=== PATIENT | female | born 1950 | race Two or more races ===

== ENCOUNTER 2024-08-21 13:45 | Emergency (ER) | payer MEDICARE, MEDICAID, SELFPAY ==
[2024-08-21 14:03] VITALS: BP 148/65; PULSE 88; RESP 20; TEMP 36.6; O2SAT 96
--- NOTE | 2024-08-21 14:16 | XR_ITS ---
Examination: Thoracic spine 3 views Technique one AP lateral coned lateral upper dorsal spine 3 views Exam date and time: August 21, 2024 1456 hrs. Indications: Patient fell 3 days ago with injury to the upper back, upper back pain. Findings: Prominent osteopenia Adequate alignment thoracic vertebral bodies on the lateral view No acute fracture Mild to moderate diffuse thoracic disc narrowing Impression: No acute thoracic fracture
--- NOTE | 2024-08-21 14:16 | XR_ITS ---
Examination: Cervical spine 3 views Technique: AP lateral coned AP odontoid cervical spine 3 views Exam date and time: August 21, 2024 1412 hrs. Comparison 01/31/2010 Indication: Patient fell 3 days ago with injury to the neck, neck pain Findings: Adequate alignment cervical vertebral bodies No cervical fracture Intact odontoid Impression: No acute cervical fracture
--- NOTE | 2024-08-21 14:16 | XR_ITS ---
Examination: Lumbar spine 3 views Technique one AP lateral coned lateral lower lumbar spine 3 views Exam date and time: August 21, 2024 1506 hrs. Indications: Patient fell 3 days ago with injury to lower back, lower back pain. Findings: Small bowel ileus No acute lumbar fracture Moderate disc narrowing L2-L3, L5-S1 Impression: No acute lumbar fracture
--- NOTE | 2024-08-21 14:25 | EDNOTE_ITS ---
<Statement entered by Cassidy Valadez MD - 08/23/24 07:00> As co-signing physician, I was present and available for consult prn. I concur with the plan and care as documented by the midlevel provider. ED Back Injury Pain RME/HPI General Chief Complaint: Back Pain/Injury Stated Complaint: BACK/TAILBONE PAIN POST FALL X SUNDAY Time Seen by Provider: 08/21/24 13:51 Source: patient Arrival date/time: 08/21/24 13:45 The patient is a 74-year-old female with a significant past medical history of hypertension, hyperlipidemia, and diabetes who presents to the emergency department with complaints of generalized back pain. The pain began after a fall approximately 8 days ago when she fell backward off a stool while cleaning her refrigerator, landing on her back. She was evaluated by her primary care provider at that time and prescribed pain medications. Despite this, she continues to experience persistent back pain. She denies fever, chills, shortness of breath, or any other injuries. Mode of arrival: ambulatory Limitations: no limitations Related Data Home Medications ?Medication ?Instructions ?Recorded ?Confirmed amlodipine 5 mg tablet 5 mg PO QDAY 07/16/20 atorvastatin 10 mg tablet 10 mg PO QDAY 07/16/2007/16 benazepril 40 mg tablet 40 mg PO QDAY 07/16/2007/16 glimepiride 1 mg tablet 1 mg PO QDAY 07/16/20 insulin glargine 100 unit/mL (3 80 unit subcut QAM 10/0107/16/20 mL) subcutaneous pen (Basaglar KwikPen U-100 Insulin) metformin 1,000 mg tablet 1,000 mg PO BID 07/16/2010/01 Allergies Allergy/AdvReac Type Severity Reaction Status Date / Time No Known Allergies Allergy Verified 08/21/24 13:50 Review of Systems Review of Systems Systems Reviewed: All systems reviewed, normal except as documented Narrative Review of Systems: Gen: No fever, no chills, no weight loss EYES: No discharge, no visual changes, no pain HEENT: No ear pain, no congestion, no sore throat PULM: No shortness of breath, no cough, no congestion CV: No chest pain, no dyspnea on exertion, no palpitations GI: No nausea, no vomiting, no diarrhea, no pain, no constipation : No frequency, no urgency,? no dysuria Musc/skel: No joint pain, ++back pain and coccyx bone pain Skin: No rash? Psyc: No hallucinations, no depression Heme/Lymph: No easy bleeding or bruising tendencies Neuro: No weakness, no headache ED Exam General Limitations: Present no limitations General appearance: Present alert and in no apparent distress Head Head exam: Present atraumatic Eye Eye exam: Present normal appearance, PERRL and EOMI ENT ENT exam: Present normal exam, normal oropharynx and mucous membranes moist Neck Neck exam: Present normal inspection, full ROM and trachea midline Chest Chest inspection: Present normal inspection and symmetric chest wall rise Respiratory Respiratory exam: Present normal lung sounds bilaterally Cardiovascular Cardiovascular exam: Present regular rate, normal rhythm and normal heart sounds Abdominal Exam Abdominal exam: Present soft and normal bowel sounds Extremities Exam Extremities exam: Present normal inspection and full ROM Back Exam Back exam: Present normal inspection, full ROM and other (Paraspinal tenderness, coccyx tenderness. No neck pain no step-offs); Absent CVA tenderness (R) or CVA tenderness (L) Neurological Exam Neurological exam: Present alert, oriented X3 and CN II-XII intact Psychiatric Psychiatric exam: Present normal affect and normal mood Skin Skin exam: Present warm, dry, intact and normal color Course Quality Measures none Orders Category Date Time Status XR cervical spine 2-3V Stat Exams 08/21/24 14:16 Completed XR lumbar spine 2-3V Stat Exams 08/21/24 14:16 Completed XR sacrum coccyx min 2V Stat Exams 08/21/24 14:26 Completed XR thoracic spine 3V Stat Exams 08/21/24 14:16 Completed Vital Signs Vital signs: Vital Signs Temperature 98 F 08/21/24 14:03 Pulse Rate 88 08/21/24 14:03 Respiratory Rate 20 08/21/24 14:03 Blood Pressure 148/65 H 08/21/24 14:03 Pulse Oximetry (%) 96 08/21/24 14:03 Oxygen Delivery Method Room Air 08/21/24 14:03 Back Pain / Injury MDM Narrative MDM Narrative:: Lumbar spine and pelvic X-rays were obtained. Imaging demonstrates an acute- appearing fracture involving the sacral segment. No associated dislocations or gross instability identified on plain films. Given the patient?s persistent pain, mechanism of injury, and imaging findings, the diagnosis of an acute sacral fracture is confirmed. No neurological deficits noted on exam. Patient is stable for discharge with strict spinal precautions, pain management, and outpatient orthopedic follow-up. Advised to minimize weight-bearing activities as tolerated and to return to the ED for any worsening symptoms, new weakness, numbness, or bowel/bladder dysfunction. Patient data External records reviewed:: [facility] previous records Clinical information provided by:: patient Social determinants that could affect healthcare access:: none Patient has the following chronic illnesses:: no How is presenting disease/condition affected by chronic disease/condition?: no chronic disease Evaluation data The following diagnostics were reviewed and interpreted by me:: radiology exam(s) Lab and/or radiology exams considered but not ordered:: no Interpretation Summary: Examination: Lumbar spine 3 views Technique one AP lateral coned lateral lower lumbar spine 3 views Exam date and time: August 21, 2024 1506 hrs. Indications: Patient fell 3 days ago with injury to lower back, lower back pain. Findings: Small bowel ileus No acute lumbar fracture Moderate disc narrowing L2-L3, L5-S1 Impression: No acute lumbar fracture Examination: Sacrococcyx 3 views Technique: AP, inclined AP lateral sigmoid are 6 3 views Indications: Patient fell 3 days ago with injury to the sacral region, sacral pain. Findings:: Acute appearing nondisplaced fracture fifth sacral segment Prominent osteopenia Impression: Acute appearing nondisplaced fracture fifth sacral segment Examination: Thoracic spine 3 views Technique one AP lateral coned lateral upper dorsal spine 3 views Exam date and time: August 21, 2024 1456 hrs. Indications: Patient fell 3 days ago with injury to the upper back, upper back pain. Findings: Prominent osteopenia Adequate alignment thoracic vertebral bodies on the lateral view No acute fracture Mild to moderate diffuse thoracic disc narrowing Impression: No acute thoracic fracture Examination: Cervical spine 3 views Technique: AP lateral coned AP odontoid cervical spine 3 views Exam date and time: August 21, 2024 1412 hrs. Comparison 01/31/2010 Indication: Patient fell 3 days ago with injury to the neck, neck pain Findings: Adequate alignment cervical vertebral bodies No cervical fracture Intact odontoid Impression: No acute cervical fracture Medications / Prescriptions Medications or Prescriptions considered but not ordered:: no Medication administrations:: no Consultations Consultation(s) initiated? (list below): No Diagnosis Differential diagnosis back pain/injury: lumbar radiculopathy, sciatica, strain of lumbar region and thoracic back pain Most likely diagnosis given after review of the tests above:: Back contusion status post fall Admission Indicated Admission indicated?: not indicated Admission Request Was there a request for admission?: No Disposition Plan Disposition Plan: Discharge Discharge Attestation Discharge Attestation: The patient and all family members were given an opportunity to ask questions and understood the discharge instructions. Discharge instructions specifically effects, indications for sooner follow up or return to the emergency department, and the expected course of current diagnosis. Patient condition: Stable Discharge Plan Plan Patient Disposition: HOME (Self Care) Patient condition on transfer: Stable Prescriptions/Referrals Prescriptions/Med Rec: No Action atorvastatin 10 mg Tablet 10 mg PO QDAY amlodipine 5 mg Tablet 5 mg PO QDAY glimepiride 1 mg Tablet 1 mg PO QDAY metformin 1,000 mg Tablet 1,000 mg PO BID benazepril 40 mg Tablet 40 mg PO QDAY Basaglar KwikPen U-100 Insulin 100 unit/mL (3 mL) Insulin Pen 80 unit SUBCUT QAM Referrals: Fauzia Rouse NP [Primary Care Provider] - In 1 week Problem List Clinical Impression: Fall, Fractured coccyx Patient/Caregiver Discharge Instructions Discharge Activity: activity as tolerated Education Materials: ED Tailbone (Coccyx) Fracture Additional Instructions: * Activity: Minimize weight-bearing activities as much as possible. Avoid standing or walking for long periods. Rest when needed. * Movement: Use care when sitting, standing, or lying down. Move slowly to avoid worsening pain. * Pain Control: Take prescribed pain medications or [id number] pain relievers (such as acetaminophen or ibuprofen) as directed. * Ice: Apply ice packs to the lower back area for 20 minutes at a time, several times a day, to reduce swelling and pain (use a cloth between the ice pack and skin). * Assistive Devices: Use a walker or cane if recommended to reduce pressure on the pelvis while moving around. * Avoid: Heavy lifting, strenuous activities, or twisting movements until cleared by your doctor. Follow-Up: * Follow up with orthopedic surgery or your primary care provider within 1 week for further evaluation and management. Return to the Emergency Department If: * You develop new or worsening back pain, numbness, tingling, weakness in your legs, or difficulty controlling your bladder or bowels. * You have fever, chills, or worsening swelling/redness in the area. Print Language: Andorran Stand Alone Forms: [facility] Award Info., Patient Portal Info Letter PA/STORAGE WORKER Supervising Physician PA/STORAGE WORKER Supervising Physician: Dr. Condon
== END 2024-08-21 18:00 | disposition home or self-care (01) ==
PROVIDERS: Emergency Provider Emergency Medicine; PCP Nurse Practitioner Family
DX: S32.2XXA Fracture of coccyx, initial encounter for closed fracture (principal); M54.2 Cervicalgia; M54.6 Pain in thoracic spine; I10 Essential (primary) hypertension; E78.5 Hyperlipidemia, unspecified; Y93.E9 Activity, other interior property and clothing maintenance; W08.XXXA Fall from other furniture, initial encounter
CPT/HCPCS: 72040; 72072; 72100; 72220; 99283

== ENCOUNTER 2024-08-31 09:38 | Emergency (ER) | payer OTHER, MEDICAID, SELFPAY ==
[2024-08-31] VITALS (9 sets, daily range): BP systolic 105–178; BP diastolic 50–131; PULSE 75–107; RESP 18–22; TEMP 37.3–39.3; O2SAT 95–97; BMI 30.3
--- NOTE | 2024-08-31 09:50 | XR_ITS ---
Examination: PA lateral chest 2 views Technique: Upright PA lateral chest 2 views Exam date and time: August 31, 2024, 10:30 AM Comparison 02/11/2024 Indications: Fever chills weakness today Findings: Mild prominence left ventricle Moderate vascular congestion Early pneumonia at the lung bases Impression: Early pneumonia at the lung bases
--- NOTE | 2024-08-31 09:50 | PD.EDRME ---
Rapid Medical Screening Exam RME Arrival date/time: 08/31/24 09:38 74-year-old female presents to the Emergency Department today for complaint of generalized weakness patient is febrile sepsis protocol initiated Chief Complaint: Fall Vital signs: Vital Signs Temperature 102.7 F H 08/31/24 09:47 Pulse Rate 75 08/31/24 09:47 Respiratory Rate 19 08/31/24 09:47 Blood Pressure 113/60 08/31/24 09:47 Pulse Oximetry (%) 95 08/31/24 09:47 Oxygen Delivery Method Room Air 08/31/24 09:47
[2024-08-31] MEDS: ACETAMINOPHEN 500 MG TABLET 1000 MG PO (10:05)
[2024-08-31 10:19] LABS: Collection Type, Urine Clean Catch
[2024-08-31 10:20] LABS: Lactate (Lactic Acid) 1.7 mMol/L (0.4-2.0)
[2024-08-31 10:25] LABS: Basophils # (Auto) 0.1 Thou/mm3 (0.0-0.2); Basophils % (Auto) 1 % (0-2.5); Eosinophils % (Auto) 0 % (0-10); Hematocrit 37.8 % (36.0-46.0); Hemoglobin 12.8 g/dL (12.0-16.0); Immature Granulocytes % (Auto) 1 % (0-0); Immature Granulocytes Auto 0.05 Thou/mm3 (0.00-0.00); Lymphocytes % (Auto) 34 % (10-50); Mean Corpuscular HGB Conc 33.9 g/dl (31.0-37.0); Mean Corpuscular Volume 89 fL (80-100); Monocytes # (Auto) 0.3 Thou/mm3 (0.0-0.8); Monocytes % (Auto) 3 % (0-12); Neutrophils # (Auto) 5.5 Thou/mm3 (1.8-7.7); Neutrophils % (Auto) 62 % (37-80); Nucleated Red Blood Cell % 0 /100 WBC (0); Platelet Count 189 Thou/mm3 (140-440); RDW Standard Deviation 42.6 fL (36.4-46.3); Red Blood Count 4.27 Miln/mm3 (4.00-5.20); White Blood Count 8.9 Thou/mm3 (3.6-11.0)
[2024-08-31 10:45] LABS: Bilirubin,Urine Negative (Negative); Blood,Urine Negative (Negative); Clarity,Urine Clear (Clear/Hazy); Color,Urine Yellow (Lt Yel-Yel); Glucose, Urine 1+ (Negative); Ketones,Urine 1+ (Negative); Leukocyte Esterase,Urine Negative (Negative); Nitrite,Urine Negative (Negative); PH,Urine 6.5 (5.0-7.0); Protein,Urine Trace (Neg - Trace); RBC,Urine 1 /hpf (0-3); Specific Gravity,Urine 1.024 (1.001-1.035); Squamous Epithelial Cell,Urine 4 /hpf (0-5); WBC,Urine 2 /hpf (0-5)
[2024-08-31 10:54] LABS: Alanine Aminotransferase 32 U/L (10-49); Albumin, Serum 3.8 gm/dL (3.4-4.8); Albumin/Globulin Ratio 1.2 (1.2-2.2); Alkaline Phosphatase 82 U/L (46-116); Anion Gap 8 (7-16); Aspartate Amino Transferase 48 U/L (0-34); BUN/Creatinine Ratio 14 Ratio (12-20); Bilirubin,Total 0.8 mg/dL (0.3-1.2); Blood Urea Nitrogen 14 mg/dL (9-23); Calcium 8.5 mg/dL (8.3-10.6); Calcium (Corrected) 8.7 mg/dL (8.5-10.1); Chloride 98 mMol/L (98-107); Globulin 3.1 gm/dL (2.3-3.5); Glucose 227 mg/dL (74-106); Osmolality,Calculated 266 (275-295); Potassium 4.3 mMol/L (3.4-5.1); Procalcitonin 0.36 ng/ml (0.0-0.49); Sodium 129 mMol/L (136-145); Total Protein 6.9 gm/dL (5.7-8.2); eGFR 60 See Note
--- NOTE | 2024-08-31 15:14 | PD.EDADULT ---
ED General RME/HPI General Chief complaint: Fall Stated complaint: SEVERE WEAKNESS/FALL @8AM, HIT BACK OF HEAD Arrival date/time: 08/31/24 09:38 Limitations: no limitations RME / HPI RME / HPI narrative: 08/31/24 09:38 74-year-old female presents to the Emergency Department today for complaint of generalized weakness patient is febrile sepsis protocol initiated DR. GREEN MAIN ED EVALUATION: 74 year old female presents to the Emergency Department with complaints of subjective fevers and chills onset a week; patient thinks this is due to a fall she had 2 weeks ago where she fell. Patient fell backward off a stool while cleaning her refrigerator, landing on her back and was evaluated here on 08/21/24. She has back of her head pain but no neck pain. No cough. No dysuria. Denies any other symptoms at this time. PMHx: Diabetes mellitus, hypercholesterolemia, and hypertension. Social Hx: No tobacco, alcohol, or substance use. Related Data Home Medications ?Medication ?Instructions ?Recorded ?Confirmed amlodipine 5 mg tablet 5 mg PO QDAY 07/16/20 07/16/20 atorvastatin 10 mg tablet 10 mg PO QDAY 07/16/20 07/16/20 benazepril 40 mg tablet 40 mg PO QDAY 07/16/20 07/16/20 glimepiride 1 mg tablet 1 mg PO QDAY 07/16/20 07/16/20 insulin glargine 100 unit/mL (3 80 unit subcut QAM 07/16/20 07/16/20 mL) subcutaneous pen (Basaglar KwikPen U-100 Insulin) metformin 1,000 mg tablet 1,000 mg PO BID 07/16/20 07/16/20 Previous Rx's ?Medication ?Instructions ?Recorded levofloxacin 500 mg tablet 500 mg PO Q24H 10 days #10 tabs 08/31/24 Allergies Allergy/AdvReac Type Severity Reaction Status Date / Time No Known Allergies Allergy Verified 08/31/24 09:44 Review of Systems Review of Systems Systems Reviewed: All systems reviewed, normal except as documented Narrative Review of Systems: GEN: + subjective fever, + chills, no weight loss EYES: No discharge, no visual changes, no pain HEENT: + back of her head pain; no ear pain, no congestion, no sore throat PULM: No shortness of breath, no cough, no congestion CV: No chest pain, no dyspnea on exertion, no palpitations GI: No nausea, no vomiting, no diarrhea, no pain, no constipation : No frequency, no urgency and no dysuria MUSC/SKEL: No joint pain, no back pain SKIN: No rash PSYCH: No hallucinations, no depression HEME/LYMPH: No easy bleeding or bruising tendencies NEURO: No weakness, no headache Past Medical History Past Medical History NEUROLOGIC: Positive Cerebrovascular Accident CARDIAC: Positive Cardiac Disorders, Hypercholesterolemia and Hypertension MUSCULOSKELETAL: Positive Arthritis ENDOCRINE: Positive Diabetes Mellitus Type 2 OTHER HISTORY: Positive Falls, Blood Transfusions, Chicken Pox, Measles and Mumps Surgical History SURGICAL: Positive Joint Replacement and Section Social History SMOKING STATUS: Never smoker SUBSTANCE USE: does not use ALCOHOL: Never ED Exam General Limitations: Present no limitations General appearance: Present alert, in no apparent distress and other (well developed) Head Head exam: Present atraumatic, normocephalic and normal inspection Eye Eye exam: Present normal appearance, PERRL and EOMI ENT ENT exam: Present normal exam, normal oropharynx and mucous membranes moist Neck Neck exam: Present normal inspection, full ROM and trachea midline Chest Chest inspection: Present normal inspection and symmetric chest wall rise Respiratory Respiratory exam: Present normal lung sounds bilaterally and other (slight crackles but air exchange is normal) Cardiovascular Cardiovascular exam: Present regular rate, normal rhythm and normal heart sounds Abdominal Exam Abdominal exam: Present soft and normal bowel sounds Extremities Exam Extremities exam: Present normal inspection and full ROM Back Exam Back exam: Present normal inspection and full ROM Neurological Exam Neurological exam: Present alert, oriented X3 and CN II-XII intact Psychiatric Psychiatric exam: Present normal affect and normal mood Skin Skin exam: Present warm, dry, intact and normal color Course Course Course Narrative: 0945: Sepsis alert initiated. Orders made at this time are congruent with ED Adult Sepsis Order List. Re-evaluation is to be completed. 1635: Fluids started. 1705: Sepsis reassessment performed consisting of lab review, vitals, physical exam including auscultation of heart, lungs, and visual evaluation of capillary refills, mucosal membranes and extremities. Patient is not septic even though she met SIRS criteria; she has a fever from an early pneumonia but is not actually septic. Patient is stable. Patient has the desire to be discharged and follow as an outpatient for her pneumonia. Quality Measures none Orders Category Date Time Status Bedside COVID-19 Antigen Test NOW Care 08/31/24 09:50 Active Bedside Influenza A&B Antigen Test NOW Care 08/31/24 09:[address] head/brain wo con Stat Exams 08/31/24 15:48 Completed XR chest 2V Stat Exams 08/31/24 09:50 Completed Blood Culture (Lab) Stat Lab 08/31/24 10:05 Received CBC Stat Lab 08/31/24 10:05 Completed Comprehensive Metabolic Panel Stat Lab 08/31/24 10:05 Completed Lactate (Lactic Acid) Stat Lab 08/31/24 10:05 Completed Procalcitonin Stat Lab 08/31/24 10:05 Completed Urinalysis Stat Lab 08/31/24 10:08 Completed Urine Culture Stat Lab 08/31/24 10:08 Received Acetaminophen Tab [Tylenol ES Tab] Med 08/31/24 09:50 Discontinued 1,000 mg PO X1 ONE Levofloxacin [Levaquin] Med 08/31/24 15:54 Discontinued 500 mg PO X1 ONE Sodium Chloride 0.9% 500 ml [Ns] 500 ml Med 08/31/24 15:48 Discontinued IV 999 mls/hr Reevaluation(s) Reevaluation #1: I offered the patient admission but the patient states she has to care for her at home, cannot walk, so patient opted for treatment as an outpatient. We reviewed all the results, analysis, and treatment plans. She denied admission and would like to be discharged on antibiotics. Patient is amenable to discharge. Strict return precautions were outlined. Patient was discharged in stable condition. Time: 17:20 Vital Signs Vital signs: Vital Signs Temperature 102.7 F H 08/31/24 09:47 Pulse Rate 75 08/31/24 09:47 Respiratory Rate 19 08/31/24 09:47 Blood Pressure 113/60 08/31/24 09:47 Pulse Oximetry (%) 95 08/31/24 09:47 Oxygen Delivery Method Room Air 08/31/24 09:47 Critical Care Time Critical Care Time Critical Care Time: Yes Total Critical Care Time (min.): 30 Attestation: The high probability of sudden, clinically significant deterioration in the patient?s condition required the highest level of my preparedness to intervene urgently. The services I provided to this patient were to treat and/or prevent clinically significant deterioration. Services included the following: chart data review, reviewing nursing notes and/or old charts, documentation time, network pricing consultant collaboration regarding findings and treatment options, medication orders and management, direct patient care, vital sign assessments and ordering, interpreting and reviewing diagnostic studies and lab tests. Aggregate critical care time includes only time during which I was engaged in work directly related to the patient?s care, as described above, whether at bedside or elsewhere in the Emergency Department. It did not include time spent performing other reported procedures or the services of residents, students, nurses or physician assistants. Discharge Plan Plan Patient Disposition: HOME (Self Care) Patient condition on transfer: Stable Prescriptions/Referrals Prescriptions/Med Rec: New levofloxacin 500 mg tablet 500 mg PO Q24H 10 Days Qty: 10 0RF No Action atorvastatin 10 mg Tablet 10 mg PO QDAY amlodipine 5 mg Tablet 5 mg PO QDAY glimepiride 1 mg Tablet 1 mg PO QDAY metformin 1,000 mg Tablet 1,000 mg PO BID benazepril 40 mg Tablet 40 mg PO QDAY Basaglar KwikPen U-100 Insulin 100 unit/mL (3 mL) Insulin Pen 80 unit SUBCUT QAM Referrals: Virgen Martinez PA-C [Primary Care Provider] - In 1 week Problem List Clinical Impression: Pneumonia, Hyponatremia, Fever Patient/Caregiver Discharge Instructions Education Materials: ED Hyponatremia, ED Pneumonia (Adult) Additional Instructions: Take Tylenol 500 mg 1-2 tabs every 6 hours as needed for pain PLUS Advil 200 mg gel tablets as needed for fever. Please follow-up with your primary care physician within a week. Return to the Emergency Department as needed. Print Language: Austrian MDM Patient Acuity Low Acuity (complete MDM as needed) Narrative: I, Enriqueta Mcarthur, am scribing for and in the presence of Dr. Green. Clinical Information Provided by: patient Medical Records reviewed [facility] Medical Records additional comments: Reviewed last ED visit dated 08/21/24, discharged with the following: Fall Labs Labs: Interpreted by la Lab(s) Interpretation(s): sodium 129, hyponatremia Imaging Imaging Interpretation(s): Procedure(s): XR chest 2V Accession Number(s): [id number] cc: Janes (ROSE MARY),Jeremie BAZZI; Kieran Veloz MD; Virgen Martinez PA-C~ Examination: PA lateral chest 2 views Technique: Upright PA lateral chest 2 views Exam date and time: August 31, 2024, 10:30 AM Comparison 02/11/2024 Indications: Fever chills weakness today Findings: Mild prominence left ventricle Moderate vascular congestion Early pneumonia at the lung bases Impression: Early pneumonia at the lung bases Dictated By: Kieran Veloz MD Procedure(s): CT head/brain wo con Accession Number(s): [id number] cc: Pj Green MD; Kieran Veloz MD; Virgen Martinez PA-C~ Examination: CT brain head without contrast. 2-D sagittal coronal reconstructions Date and time of exam:August 31, 2024 1618 hrs. Indications: Patient fell 10 days ago with injury to the head, head pain CTDI: vol (mGy):45 DLP: (mGycm):906 t Technique: Multiple CT axial sections of the brain have been obtained, 5 mm slice thickness. Contrast has not been administered. 2-D sagittal, coronal reconstructions have been obtained Low dose protocols were performed. One or more of the following dose reduction techniques were used; automated exposure control, adjustment of the mA and/or KV according to patient size, use of iterative reconstruction technique. Findings: No significant ventricular enlargement. Intra-axial or extra-axial hemorrhage density is not seen. No mass effect or midline shift Basal cisterns are not remarkable. Fourth ventricle is midline. Cranial vault intact. Impression: Negative for acute hemorrhage, mass effect or midline shift Dictated By: Kieran Veloz MD Medication Administration(s) Medication Administration History Discontinued Medications Acetaminophen (Acetaminophen 500 Mg Tablet) 1,000 mg PO X1 ONE Stop: 08/31/24 09:51 Last Admin: 08/31/24 10:05 Dose: 1,000 mg Documented By: MICHAEL Sodium Chloride (Ns) 500 mls @ 999 mls/hr IV .Q31M ONE Stop: 08/31/24 16:18 Last Admin: 08/31/24 16:35 Dose: 999 mls/hr Documented By: KIMMIE Levofloxacin (Levofloxacin 250 Mg Tablet) 500 mg PO X1 ONE Stop: 08/31/24 15:55 Last Admin: 08/31/24 16:37 Dose: 500 mg Documented By: KIMMIE Diagnosis Differential Diagnosis ED Complaint MDM: UTI, pneumonia, sepsis
--- NOTE | 2024-08-31 15:48 | XR_ITS ---
Examination: CT brain head without contrast. 2-D sagittal coronal reconstructions Date and time of exam:August 31, 2024 1618 hrs. Indications: Patient fell 10 days ago with injury to the head, head pain CTDI: vol (mGy):45 DLP: (mGycm):906 t Technique: Multiple CT axial sections of the brain have been obtained, 5 mm slice thickness. Contrast has not been administered. 2-D sagittal, coronal reconstructions have been obtained Low dose protocols were performed. One or more of the following dose reduction techniques were used; automated exposure control, adjustment of the mA and/or KV according to patient size, use of iterative reconstruction technique. Findings: No significant ventricular enlargement. Intra-axial or extra-axial hemorrhage density is not seen. No mass effect or midline shift Basal cisterns are not remarkable. Fourth ventricle is midline. Cranial vault intact. Impression: Negative for acute hemorrhage, mass effect or midline shift
[2024-08-31] MEDS: SODIUM CHLORIDE 0.9% 500 ML 500 ML 999 ML IV (16:35)
[2024-08-31] MEDS: LEVOFLOXACIN 250 MG TABLET 500 MG PO (16:37)
--- NOTE | 2024-08-31 17:15 | PC.NURSE ---
FLUIDS WERE STOPPED SINCE PT ARM WAS BENT. ASSESSED IV SITE. NO REDNESS OR SWELLING. REPOSITIONED PATIENTS ARM. FLUIDS ARE RUNNING
--- NOTE | 2024-08-31 18:16 | PC.NURSE ---
PT AMBULATED TO RESTROOM. MINIMAL ASSIST
[2024-08-31] MEDS: KETOROLAC INJ 30 MG/ML VIAL 15 MG IVP (18:44)
[2024-08-31] MEDS: ACETAMINOPHEN IVPB 1,000 MG/100 ML VIAL 250 MG IV (18:46)
== END 2024-08-31 21:03 | disposition home or self-care (01) ==
PROVIDERS: Nurse Practitioner Primary Care; Emergency Provider Family Medicine; PCP Physician Assistant
DX: N39.0 Urinary tract infection, site not specified (principal); J18.9 Pneumonia, unspecified organism; R51.9 Headache, unspecified
CPT/HCPCS: 36415; 70450; 71046; 80053; 81001; 83605; 84145; 85025; 87040; 87086; 87400; 87811; 96361; 96365; 96375; 99284; J0131; J1885; J7040; A9270

== ENCOUNTER → 2024-09-29 | Outpatient (CLI) | payer MEDICARE, MEDICAID, SELFPAY ==
--- NOTE | 2024-09-29 10:49 | XR_ITS ---
Examination: Lumbar spine, 5 views Technique: Lumbar spine AP, lateral, coned lateral lower lumbar spine, bilateral obliques 5 views Exam date and time: September 29, 2024 1212 hours INDICATIONS: Patient fell 3 months ago with injury to the lower back, lower back pain. FINDINGS: Prominent osteopenia. No acute lumbar fracture Diffuse [id number] lumbar degenerative disc disease most prominent at L5-S1 IMPRESSION: No lumbar fracture Diffuse [id number] lumbar degenerative disc disease, most prominent at L5-S1
== END | disposition home or self-care (01) ==
PROVIDERS: PCP Physician Assistant
DX: M51.370 Other intervertebral disc degeneration, lumbosacral region with discogenic back pain only (principal); M51.360 Other intervertebral disc degeneration, lumbar region with discogenic back pain only
CPT/HCPCS: 72110

== ENCOUNTER → 2024-10-13 | Outpatient (CLI) | payer MEDICARE, MEDICAID, SELFPAY ==
--- NOTE | 2024-10-13 09:40 | XR_ITS ---
Examination: Carotid arterial duplex scan, ultrasound. Date and time of exam: October 13, 2024 at 0957 hours INDICATIONS: Episodes left neck pain and slurred speech beginning 2 days ago Technique: Multiple sonographic images have been obtained of the carotid arteries and vertebral arteries, B-mode/grayscale imaging and Doppler spectral analysis and color flow Peak systolic and diastolic velocities have been recorded. Systolic diastolic ratios have been calculated. Findings: Right peak systolic velocities: Distal internal carotid artery peak systolic velocity is 0.6 M/sec Proximal internal carotid artery peak systolic velocity is 0.9 M/sec Carotid bifurcation peak systolic velocity is 0.8 M/sec External carotid artery peak systolic velocity is 0.6 M/sec Vertebral artery flow is antegrade. Left peak systolic velocities: Distal internal carotid artery peak systolic velocity is 1.1 M/sec Proximal internal carotid artery peak systolic velocity is 0.5 M/sec Carotid bifurcation peak systolic velocity is 0.7 M/sec External carotid artery peak systolic velocity is 0.7 M/sec Vertebral artery flow is antegrade Doppler waveform analysis demonstrates no spectral broadening Impression: Right internal carotid artery demonstrates 0-10% stenosis. Left internal carotid artery demonstrates 10-30% stenosis.
== END | disposition home or self-care (01) ==
PROVIDERS: PCP Physician Assistant; Referring Provider Physician Assistant; Visit Provider Physician Assistant
DX: R47.81 Slurred speech (principal)
CPT/HCPCS: 93880

== ENCOUNTER 2024-12-28 12:19 | Emergency (ER) | payer MEDICARE, MEDICAID, SELFPAY ==
[2024-12-28 12:42] VITALS: BP 130/72; PULSE 69; RESP 20; TEMP 36.8; O2SAT 97
--- NOTE | 2024-12-28 12:44 | EKG_ITS ---
[facility] Test Date: 2024-12-28 Pat Name: EMPERATRIZ PAGE Department: Room: - Gender: Female [employer] Polisher: : 1950 Requested By: Riky Pardo Order Number: [id number] Reading MD: Riky Pardo Measurements Intervals [place] Rate: 65 P: 28 MI: 177 QRS: -42 QRSD: 133 T: 122 QT: 431 QTc: 450 Interpretive Statements SINUS RHYTHM LEFT AXIS DEVIATION [QRS AXIS < -30] LEFT BUNDLE BRANCH BLOCK [120+ ms QRS DURATION, 80+ ms Q/S IN V1/V2, 85+ ms R IN I/aVL/V5/V6] No previous ECG available for comparison /store/S0/[id number].pdf
[2024-12-28 12:45] VITALS: BMI 23.1
--- NOTE | 2024-12-28 12:45 | PD.EDRME ---
Rapid Medical Screening Exam RME Arrival date/time: 12/28/24 12:19 74-year-old female with a history of hypertension, hyperlipidemia, type 2 diabetes presents to the emergency room with a chief complaint of dizziness, lightheadedness, generalized weakness x 1 week I have greeted and performed a focused initial assessment of this patient. A comprehensive ED assessment and evaluation of the patient, analysis of all test results, and completion of the medical decision making process will be conducted by additional ED providers. Chief Complaint: Weakness Time Seen by Provider: 12/28/24 12:40 Vital signs: Vital Signs Temperature 98.2 F 12/28/24 12:42 Pulse Rate 69 12/28/24 12:42 Respiratory Rate 20 12/28/24 12:42 Blood Pressure 130/72 12/28/24 12:42 Pulse Oximetry (%) 97 12/28/24 12:42 Oxygen Delivery Method Room Air 12/28/24 12:42 Vital signs reviewed by provider: Yes
[2024-12-28 13:25] LABS: Basophils # (Auto) 0.0 Thou/mm3 (0.0-0.2); Basophils % (Auto) 0 % (0-2.5); Eosinophils # (Auto) 0.2 Thou/mm3 (0.0-0.5); Eosinophils % (Auto) 2 % (0-10); Hematocrit 39.1 % (36.0-46.0); Hemoglobin 12.8 g/dL (12.0-16.0); Immature Granulocytes Auto 0.02 Thou/mm3 (0.00-0.00); Lymphocytes # (Auto) 2.7 Thou/mm3 (1.0-4.8); Lymphocytes % (Auto) 39 % (10-50); Mean Corpuscular HGB Conc 32.7 g/dl (31.0-37.0); Mean Corpuscular Hemoglobin 30.3 pg (25.0-35.0); Mean Corpuscular Volume 92 fL (80-100); Monocytes # (Auto) 0.4 Thou/mm3 (0.0-0.8); Monocytes % (Auto) 5 % (0-12); Neutrophils # (Auto) 3.7 Thou/mm3 (1.8-7.7); Neutrophils % (Auto) 53 % (37-80); Nucleated Red Blood Cell # 0.00 Thou/mm3 (0.00-0.00); Nucleated Red Blood Cell % 0 /100 WBC (0); Platelet Count 147 Thou/mm3 (140-440); RDW Standard Deviation 43.7 fL (36.4-46.3); Red Blood Count 4.23 Miln/mm3 (4.00-5.20); White Blood Count 7.0 Thou/mm3 (3.6-11.0)
[2024-12-28 13:35] LABS: Collection Type, Urine Clean Catch; RBC,Urine 0 /hpf (0-3)
[2024-12-28 13:37] LABS: Alanine Aminotransferase 30 U/L (10-49); Albumin, Serum 4.2 gm/dL (3.4-4.8); Albumin/Globulin Ratio 1.6 (1.2-2.2); Alkaline Phosphatase 93 U/L (46-116); Anion Gap 10 (7-16); Aspartate Amino Transferase 38 U/L (0-34); BUN/Creatinine Ratio 13 Ratio (12-20); Bilirubin,Total 0.6 mg/dL (0.3-1.2); Blood Urea Nitrogen 12 mg/dL (9-23); Calcium 9.7 mg/dL (8.3-10.6); Calcium (Corrected) 9.7 mg/dL (8.5-10.1); Carbon Dioxide 24.9 mMol/L (20.0-31.0); Chloride 102 mMol/L (98-107); Creatinine (Component) 0.9 mg/dL (0.6-1.3); Estimated Creatinine Clearance 50.8 mL/min (>60); Globulin 2.7 gm/dL (2.3-3.5); Glucose 369 mg/dL (74-106); Magnesium 1.2 mg/dL (1.6-2.6); Osmolality,Calculated 288 (275-295); Potassium 5.0 mMol/L (3.4-5.1); Sodium 137 mMol/L (136-145); Total Protein 6.9 gm/dL (5.7-8.2); Troponin I < 0.020 ng/mL (0.0-0.045); eGFR > 60 See Note
[2024-12-28 13:48] LABS: Bacteria,Urine Rare; Bilirubin,Urine Negative (Negative); Blood,Urine Negative (Negative); Clarity,Urine Hazy (Clear/Hazy); Color,Urine Colorless (Lt Yel-Yel); Glucose, Urine 4+ (Negative); Ketones,Urine Negative (Negative); Leukocyte Esterase,Urine Positive (Negative); Nitrite,Urine Negative (Negative); PH,Urine 6.0 (5.0-7.0); Protein,Urine Negative (Neg - Trace); Specific Gravity,Urine 1.014 (1.001-1.035); Squamous Epithelial Cell,Urine < 1 /hpf (0-5); Urobilinogen,Urine Negative mg/dL (0.0-1.0); WBC,Urine 8 /hpf (0-5)
[2024-12-28 14:08] LABS: B-Type Natriuretic Peptide 46 pg/mL (0-100)
[2024-12-28 18:10] VITALS: BP 135/66; PULSE 63; RESP 18; TEMP 36.9; O2SAT 98
--- NOTE | 2024-12-28 18:22 | PD.EDWEAK ---
ED Weakness RME/HPI General Chief complaint: Weakness Stated complaint: HEADACHE, WEAKNESS, DIZZINESS, HANDS NUMB X 1 WK Time Seen by Provider: 12/28/24 12:40 Arrival date/time: 12/28/24 12:19 RME / HPI RME / HPI Narrative: 12/28/24 12:19 74-year-old female with a history of hypertension, hyperlipidemia, type 2 diabetes presents to the emergency room with a chief complaint of dizziness, lightheadedness, generalized weakness x 1 week I have greeted and performed a focused initial assessment of this patient. A comprehensive ED assessment and evaluation of the patient, analysis of all test results, and completion of the medical decision making process will be conducted by additional ED providers. See MDM. Related Data Home Medications ?Medication ?Instructions ?Recorded ?Confirmed amlodipine 5 mg tablet 5 mg PO QDAY 07/16/20 07/16/20 atorvastatin 10 mg tablet 10 mg PO QDAY 07/16/20 07/16/20 benazepril 40 mg tablet 40 mg PO QDAY 07/16/20 07/16/20 glimepiride 1 mg tablet 1 mg PO QDAY 07/16/20 07/16/20 insulin glargine 100 unit/mL (3 80 unit subcut QAM 07/16/20 07/16/20 mL) subcutaneous pen (Basaglar KwikPen U-100 Insulin) metformin 1,000 mg tablet 1,000 mg PO BID 07/16/20 07/16/20 Previous Rx's ?Medication ?Instructions ?Recorded azithromycin 500 mg tablet 500 mg PO QDAY 3 days #3 tabs 12/28/24 (Zithromax TRI-BON) magnesium oxide 400 mg PO BID #60 tabs 12/28/24 meclizine 25 mg tablet 25 mg PO BID PRN dizziness #20 tabs 12/28/24 ondansetron 4 mg disintegrating 4 mg PO TID PRN nausea and 12/28/24 tablet vomiting 30 days #10 tabs prednisone 50 mg tablet 50 mg PO QDAY #3 tabs 12/28/24 scopolamine base 1 mg over 3 days 1 mg topical .q72 hours PRN 12/28/24 transdermal patch (Transderm-Scop) dizziness or vertigo #4 ea Allergies Allergy/AdvReac Type Severity Reaction Status Date / Time No Known Allergies Allergy Verified 12/28/24 12:22 Review of Systems Review of Systems Systems Reviewed: All systems reviewed, normal except as documented Past Medical History Past Medical History NEUROLOGIC: Positive Cerebrovascular Accident; Negative Neurological Disorders or Seizures CARDIAC: Positive Cardiac Disorders, Hypercholesterolemia and Hypertension; Negative Congestive Heart Failure RESPIRATORY: Negative Chronic Obstructive Pulmonary Disease (COPD) GASTROINTESTINAL: Negative Gastrointestinal Disorders GENITOURINARY: Negative Genitourinary Disorders or Renal Disease MUSCULOSKELETAL: Positive Arthritis; Negative Musculoskeletal Disorders ENDOCRINE: Positive Diabetes Mellitus Type 2; Negative Diabetes Mellitus Type 1 HEMATOLOGIC: Negative Blood Disorders OTHER HISTORY: Positive Falls, Blood Transfusions, Chicken Pox, Measles and Mumps; Negative Autoimmune Disease, Anesthesia Reactions, Organ Transplant or Cancer Family History FAMILY HISTORY: Negative Family Cardiac Disorders Surgical History SURGICAL: Positive Joint Replacement and Section; Negative Cardiac Surgery, Endocrine Surgery or Organ Transplant Social History SMOKING STATUS: Never smoker SUBSTANCE USE: does not use ED Exam Narrative Physical exam: As noted in HPI. Course Course Course Narrative: CXR is ordered for determining the etiology of weakness. Quality Measures none Orders Category Date Time Status Bedside COVID-19 Antigen Test NOW Care 12/28/24 18:24 Completed Bedside Influenza A&B Antigen Test NOW Care 12/28/24 18:24 Completed EKG (ED ONLY) *Do not use* NOW Care 12/28/24 12:44 Completed Saline [Insert IV] NOW Care 12/28/24 18:[address] head/brain wo con Stat Exams 12/28/24 18:26 Completed EKG (ED Only) Stat Exams 12/28/24 12:44 Draft XR chest 1V portable Stat Exams 12/28/24 18:27 Completed B-Type Natriuretic Peptide Stat Lab 12/28/24 13:01 Completed Beta Hydroxybutyrate Stat Lab 12/28/24 19:28 Completed CBC Stat Lab 12/28/24 13:01 Completed Comprehensive Metabolic Panel Stat Lab 12/28/24 13:01 Completed Free T4 (Free Thyroxine) Stat Lab 12/28/24 19:28 Completed Hemoglobin A1C [Glycohemoglobin w (eAG)] Stat Lab 12/28/24 19:28 Completed Magnesium Stat Lab 12/28/24 13:01 Completed TSH [Thyroid Stimulating Hormone] Stat Lab 12/28/24 19:28 Completed Troponin I Stat Lab 12/28/24 13:01 Completed Urinalysis Stat Lab 12/28/24 13:10 Completed Azithromycin Po [Zithromax PO] Med 12/28/24 20:53 Discontinued 500 mg PO X1 ONE Insulin Regular Med 12/28/24 18:24 Discontinued 5 unit IV X1 ONE Magnesium Sulfate 2 GM Ivpb [Magnesium Sulfate Ivpb] Med 12/28/24 18:24 Discontinued 2 gm in 50 ml IV X1 Meclizine HCl [Antivert] Med 12/28/24 18:24 Discontinued 25 mg PO X1 ONE MethylPREDNISolone.* [SoluMEDROL Inj] Med 12/28/24 21:01 Discontinued 125 mg IVP X1 ONE Ondansetron Inj [Zofran Inj] Med 12/28/24 18:24 Discontinued 4 mg IVP X1 ONE Scopolamine [Transderm-Scop Patch] Med 12/28/24 18:24 Discontinued 1 mg TOP X1 ONE Sodium Chloride 0.9% 1000 ml [Ns] 1,000 ml Med 12/28/24 18:24 Discontinued IV 999 mls/hr cefTRIAXone/D5w 1gm IV premix [Rocephin/D5w 1gm IV Med 12/28/24 18:24 Discontinued premix] 1 gm in 50 ml IV X1 Vital Signs Vital signs: Vital Signs Temperature 98.2 F 12/28/24 12:42 Pulse Rate 69 12/28/24 12:42 Respiratory Rate 20 12/28/24 12:42 Blood Pressure 130/72 12/28/24 12:42 Pulse Oximetry (%) 97 12/28/24 12:42 Oxygen Delivery Method Room Air 12/28/24 12:42 Weakness MDM Narrative MDM Narrative:: This section includes all my notes and documentations, including HPI, PE, and ED course. Wally Doll MD HPI: 74yo female with a history of HTN, DMII here with complaints of generalized weakness and dizziness for the last several days. Dizziness is described as spinning sensation. No falls or injuries. No other complaints reported. ROS: All negative except as documented in HPI. Physical Exam: General: Alert and oriented. No acute distress when remaining still. Eyes: Conjunctivae and lids clear. EOMI. PERRL. ENT: No nasal congestion. Pharynx normal. Tympanic membrane normal bilaterally. Neck: Supple. No carotid bruit. No JVD. Heart: RRR. Lungs: No respiratory distress. Good air movement with rales. Abdomen: Soft and nontender. Normal bowel sounds. No distension. No rebound or guarding. Back: No CVA tenderness. Legs: No clubbing, cyanosis, edema. Skin: Warm and dry. Neuro: Alert and oriented X 3. Cranial Nerves II-XII grossly intact. No peripheral motor deficits. I reviewed all diagnostic test results. My interpretation of the EKG is sinus rhythm with no acute ST?T changes. My interpretation of the chest x-ray is infiltrates. My review of the CT head report is unremarkable. Blood tests remarkable for Glucose 369, Mg 1.2. UA remarkable for positive leukocyte esterase, 8 WBCs, and bacteria. COVID/Influenza negative. At this point, diagnoses include Vertigo, General weakness, Hyperglycemia, Hypomagnesemia, UTI (urinary tract infection), Pneumonia. Treatment here included Insulin, Meclizine, Zofran, Scopolamine, Rocephin, Azithromycin, Magnesium, IV fluid, Solumedrol, and regular insulin 5 units IV. Significant improvement noted. Recommended outpatient workup. Based on my best medical judgment, made decision no further evaluation or treatment indicated at this time. Patient understands and agrees to the discharge instructions customized and printed, see below. Discharge instructions from Dr. Doll: 1. After extensive evaluation, there is no life-threatening condition. Such as stroke or brain tumor or heart attack or pneumothorax (collapsed lung). 2. Your dizziness is due to Vertigo, see attached handout. Meclizine and scopolamine patches as needed for spinning dizziness. Zofran for nausea/vomiting. 3. Your other diagnoses include urine infection and pneumonia and low magnesium level and high sugar level. Take cefdinir and Zithromax and prednisone for your pneumonia and urine infection. 4. See a private doctor on 12/30/2024 for recheck and further care. Ask to review all test results and official radiology reports, to make sure you receive all necessary follow-ups and monitoring. Including final urine culture results and repeat magnesium level. Ask for help until you are completely better. 5. Seek immediate medical care with worsening or with any concerns. Wally Doll MD Patient data External records reviewed:: [facility] previous records (Per chart review, patient was seen here on 08/31/24 for fever.) Clinical information provided by:: patient Social determinants that could affect healthcare access:: none Patient has the following chronic illnesses:: CVA, HTN, DM, HLD How is presenting disease/condition affected by chronic disease/condition?: uneffected by Evaluation data The following diagnostics were reviewed and interpreted by me:: lab results, radiology exam(s) and EKG tracing(s) Lab and/or radiology exams considered but not ordered:: none Interpretation Summary: I reviewed all diagnostic test results. My interpretation of the EKG is sinus rhythm with no acute ST?T changes. My interpretation of the chest x-ray is infiltrates. My review of the CT head report is unremarkable. Blood tests remarkable for Glucose 369, Mg 1.2. UA remarkable for positive leukocyte esterase, 8 WBCs, and bacteria. COVID/Influenza negative. Medications / Prescriptions Medications or Prescriptions considered but not ordered:: none Medication administrations:: Medication Administration History Discontinued Medications Azithromycin (Azithromycin 250 Mg Tablet) 500 mg PO X1 ONE Stop: 12/28/24 20:54 Last Admin: 12/28/24 21:18 Dose: 500 mg Documented By: GONZALO Sodium Chloride (Ns) 1,000 mls @ 999 mls/hr IV .Q1H1M ONE Stop: 12/28/24 19:24 Last Infusion: 12/28/24 20:00 Dose: Infused Documented By: Admin: 12/28/24 18:59 Dose: 999 mls/hr Documented By: JUAN Magnesium Sulfate (Magnesium Sulfate Ivpb) 2 gm in 50 mls @ 25 mls/hr IV X1 ONE Stop: 12/28/24 20:23 Last Admin: 12/28/24 19:55 Dose: 25 mls/hr Documented By: LANNY Ceftriaxone Sodium/Dextrose (Rocephin/D5w 1gm Iv Premix) 1 gm in 50 mls @ 100 mls/hr IV X1 ONE Stop: 12/28/24 18:53 Last Infusion: 12/28/24 21:26 Dose: Infused Documented By: Admin: 12/28/24 19:17 Dose: 100 mls/hr Documented By: JUAN Insulin Human Regular (Insulin Hum Regular 1 Unit/0.01 Ml (Per Unit)) 5 unit IV X1 ONE Stop: 12/28/24 18:25 Last Admin: 12/28/24 19:16 Dose: 5 unit Documented By: FC Co-signed By: MAIRA Meclizine HCl (Meclizine Hcl 25 Mg Tablet) 25 mg PO X1 ONE Stop: 12/28/24 18:25 Last Admin: 12/28/24 18:59 Dose: 25 mg Documented By: JUAN Methylprednisolone Sodium Succinate (Methylprednisolone Sod Succ 62.5 Mg/Ml 2ml Vial) 125 mg IVP X1 ONE Stop: 12/28/24 21:02 Last Admin: 12/28/24 21:18 Dose: 125 mg Documented By: GONZALO Ondansetron HCl (Ondansetron Inj 2 Mg/Ml Inj 2 Ml) 4 mg IVP X1 ONE; Protocol Stop: 12/28/24 18:25 Last Admin: 12/28/24 19:00 Dose: 4 mg Documented By: JUAN Scopolamine (Scopolamine 1 Mg Tdsy) 1 mg TOP X1 ONE Stop: 12/28/24 18:25 Last Admin: 12/28/24 18:59 Dose: 1 mg Documented By: JUAN Insulin, Meclizine, Zofran, Scopolamine, Rocephin, Azithromycin, Magnesium, IV fluid, Solumedrol, and regular insulin 5 units IV. Consultations Consultation(s) initiated? (list below): No Diagnosis Weakness Differential Diagnosis: acute myocardial infarction, anemia, hypoglycemia, hypothyroidism, rhabdomyolysis, sepsis and dehydration Most likely diagnosis given after review of the tests above:: Vertigo, General weakness, Hyperglycemia, Hypomagnesemia, UTI (urinary tract infection), Pneumonia Admission Indicated Admission indicated?: not indicated Explain why admission is indicated or not indicated:: With significant improvement and no condition needing emergent intervention, there was no indication for admission. Admission Request Was there a request for admission?: No Disposition Plan Disposition Plan: Discharge Discharge Attestation Discharge Attestation: The patient and all family members were given an opportunity to ask questions and understood the discharge instructions. Discharge instructions specifically effects, indications for sooner follow up or return to the emergency department, and the expected course of current diagnosis. Patient condition: Stable Discharge Plan Plan Patient Disposition: HOME (Self Care) Prescriptions/Referrals Prescriptions/Med Rec: New meclizine 25 mg tablet 25 mg PO BID PRN (Reason: dizziness) Qty: 20 0RF scopolamine base [Transderm-Scop] 1 mg over 3 days patch 3 day 1 mg topical .q72 hours PRN (Reason: dizziness or vertigo) Qty: 4 0RF ondansetron 4 mg tablet,disintegrating 4 mg PO TID PRN (Reason: nausea and vomiting) 30 Days Qty: 10 0RF magnesium oxide 400 mg magnesium tablet 400 mg PO BID Qty: 60 0RF prednisone 50 mg tablet 50 mg PO QDAY Qty: 3 0RF azithromycin [Zithromax TRI-BON] 500 mg tablet 500 mg PO QDAY 3 Days Qty: 3 0RF No Action atorvastatin 10 mg Tablet 10 mg PO QDAY amlodipine 5 mg Tablet 5 mg PO QDAY glimepiride 1 mg Tablet 1 mg PO QDAY metformin 1,000 mg Tablet 1,000 mg PO BID benazepril 40 mg Tablet 40 mg PO QDAY [place] U-100 Insulin 100 unit/mL (3 mL) Insulin Pen 80 unit SUBCUT QAM Referrals: Virgen Martinez PA-C [Primary Care Provider] - In 1 week Problem List Clinical Impression: Vertigo, General weakness, Hyperglycemia, Hypomagnesemia, UTI (urinary tract infection), Pneumonia Patient/Caregiver Discharge Instructions Discharge Activity: activity as tolerated Education Materials: Magnesium (Blood), ED Diabetes with High Blood Sugar, ED Pneumonia (Adult), ED CYSTITIS Female Adult, ED Vertigo, Unspecified Additional Instructions: Discharge instructions from Dr. Doll: 1. After extensive evaluation, there is no life-threatening condition.? Such as stroke or brain tumor or heart attack or pneumothorax (collapsed lung). 2. Your dizziness is due to Vertigo, see attached handout. Meclizine and scopolamine patches as needed for spinning dizziness. Zofran for nausea/vomiting. 3. Your other diagnoses include urine infection and pneumonia and low magnesium level and high sugar level. Take cefdinir and Zithromax and prednisone for your pneumonia and urine infection. 4. See a private doctor on 12/30/2024 for recheck and further care. Ask to review all test results and official radiology reports, to make sure you receive all necessary follow-ups and monitoring. Including final urine culture results and repeat magnesium level. Ask for help until you are completely better. 5. Seek immediate medical care with worsening or with any concerns.?? Instrucciones de rozina del Dr. Doll: 1. Tras catrachito evaluaci?n exhaustiva, no se observa ninguna afecci?n potencialmente mortal, gray un derrame cerebral, un tumor cerebral, un infarto de miocardio o un neumot?rax (colapso pulmonar). 2. El mareo se debe a v?rtigo (consulte el folleto adjunto). Parches de meclizina y escopolamina, seg?n sea necesario, para el mareo giratorio. Zofr?n para las n?useas y los v?mitos. 3. Otros diagn?sticos incluyen infecci?n urinaria, neumon?a, niveles bajos de magnesio y niveles altos de az?car. [place] cefdinir, zitromicina y prednisona para la neumon?a y la infecci?n urinaria. 4. Consulte con un m?dico particular el 30/12/2024 para catrachito nueva revisi?n y atenci?n adicional. Solicite la revisi?n de todos los resultados de las pruebas y los informes radiol?gicos oficiales para asegurarse de recibir todos los controles y monitoreos necesarios, incluyendo los resultados finales del urocultivo y la repetici?n del nivel de magnesio. Solicite ayuda hasta que se recupere por completo. 5. Busque atenci?n m?dica inmediata si empeora o tiene alguna inquietud. Print Language: Hebrew Stand Alone Forms: [employer] Award Info., Patient Portal Info Letter
--- NOTE | 2024-12-28 18:26 | XR_ITS ---
Examination: CT brain head without contrast. 2-D sagittal coronal reconstructions Date and time of exam:December 28, 2024 1855 hours INDICATIONS: Onset dizziness weakness beginning last week CTDI: vol (mGy):46.6 DLP: (mGycm):885 Technique: Multiple CT axial sections of the brain have been obtained, 5 mm slice thickness. Contrast has not been administered. 2-D sagittal, coronal reconstructions have been obtained Low dose protocols were performed. One or more of the following dose reduction techniques were used; automated exposure control, adjustment of the mA and/or KV according to patient size, use of iterative reconstruction technique. Findings: No significant ventricular enlargement. Intra-axial or extra-axial hemorrhage density is not seen. No mass effect or midline shift Basal cisterns are not remarkable. Fourth ventricle is midline. Cranial vault intact. Impression: Negative for acute hemorrhage, mass effect or midline shift Advise clinical correlation and follow up accordingly
--- NOTE | 2024-12-28 18:27 | XR_ITS ---
Examination: AP chest single view Technique one AP portable semiupright chest single view Date and time: December 28, 2024 1907 hours, comparison August 31, 2024 INDICATIONS: Chest pain and shortness of breath today. FINDINGS: Mild enlargement cardiac contour with significant vascular congestion Subtle opacity in both lungs which may represent superimposed pneumonia Prominent osteopenia IMPRESSION: Significant vascular congestion Suspicious for diffuse bilateral pneumonia
[2024-12-28] MEDS: MECLIZINE HCL 25 MG TABLET PO (18:59)
[2024-12-28] MEDS: SODIUM CHLORIDE 0.9% 1000 ML 1,000 ML 999 ML IV (18:59)
[2024-12-28] MEDS: SCOPOLAMINE 1 MG TDSY TOP (18:59)
[2024-12-28] MEDS: ONDANSETRON INJ 2 MG/ML INJ 2 ML 4 MG IVP (19:00)
[2024-12-28] MEDS: INSULIN HUM REGULAR 1 UNIT/0.01 ML (PER UNIT) 5 UNIT IV (19:16)
[2024-12-28] MEDS: cefTRIAXone/D5w 1gm IV premix 1 GM/50 ML BAG IV (19:17)
[2024-12-28] MEDS: Magnesium Sulfate 2 GM Ivpb 2 GM/50 ML BAG IV (19:55)
[2024-12-28 20:02] LABS: Beta Hydroxybutyrate 0.1 mmol/L (<0.6)
[2024-12-28 20:13] VITALS: BP 123/57; PULSE 67; RESP 19; TEMP 37.1; O2SAT 97
[2024-12-28 20:23] LABS: Free T4 (Free Thyroxine) 0.94 ng/dL (0.89-1.76); Thyroid Stimulating Hormone 3.60 uIU/mL (0.55-4.78)
[2024-12-28 20:25] LABS: Glucose Estimated Average 217 mg/dL (80-131); Hemoglobin A1C 9.2 % Hgb (4.8-6.0)
[2024-12-28] MEDS: MethylPREDNISolone SOD SUCC 62.5 MG/ML 2ML VIAL 125 MG IVP (21:18)
[2024-12-28] MEDS: AZITHROMYCIN 250 MG TABLET 500 MG PO (21:18)
[2024-12-28 21:26] VITALS: BP 148/78; PULSE 70; RESP 18; TEMP 36.7; O2SAT 96
== END 2024-12-28 21:27 | disposition home or self-care (01) ==
PROVIDERS: Nurse Practitioner Family; Emergency Provider Emergency Medicine; PCP Physician Assistant
DX: J18.9 Pneumonia, unspecified organism (principal); E11.65 Type 2 diabetes mellitus with hyperglycemia; E83.42 Hypomagnesemia; N39.0 Urinary tract infection, site not specified; I10 Essential (primary) hypertension; E78.5 Hyperlipidemia, unspecified; Z86.73 Personal history of transient ischemic attack (TIA), and cerebral infarction without residual deficits; Z79.84 Long term (current) use of oral hypoglycemic drugs; Z79.4 Long term (current) use of insulin; Z79.899 Other long term (current) drug therapy
CPT/HCPCS: 36415; 70450; 71045; 80053; 81001; 82010; 83036; 83735; 83880; 84439; 84443; 84484; 85025; 87086; 87400; 87811; 93005; 96365; 96366; 96375; 99283; J0696; J1815; J2405; J2919; J3475; J7030; A9270

== ENCOUNTER 2024-12-29 19:04 | Emergency (ER) | payer MEDICARE, MEDICAID, SELFPAY ==
[2024-12-29 19:16] VITALS: PULSE 85; RESP 16; O2SAT 95
[2024-12-29 19:18] VITALS: BP 147/62; PULSE 69; RESP 18; TEMP 36.7; O2SAT 96
--- NOTE | 2024-12-29 19:20 | PD.EDWEAK ---
ED Weakness RME/HPI General Chief complaint: Weakness Stated complaint: WEAKNESS Time Seen by Provider: 12/29/24 19:09 Source: patient Arrival date/time: 12/29/24 19:04 Mode of arrival: EMS Limitations: no limitations RME / HPI RME / HPI Narrative: Patient is a 72-year-old female who was seen here yesterday. She has a history of diabetes. She was seen here yesterday and treated for UTI. She states she has had ongoing dizziness and mild abdominal discomfort. Had nausea but no vomiting. States her sugar has been difficult to control. She has no falls or injuries. No other acute complaints. Related Data Home Medications ?Medication ?Instructions ?Recorded ?Confirmed amlodipine 5 mg tablet 5 mg PO QDAY 07/16/20 07/16/20 atorvastatin 10 mg tablet 10 mg PO QDAY 07/16/20 07/16/20 benazepril 40 mg tablet 40 mg PO QDAY 07/16/20 07/16/20 glimepiride 1 mg tablet 1 mg PO QDAY 07/16/20 07/16/20 insulin glargine 100 unit/mL (3 80 unit subcut QAM 07/16/20 07/16/20 mL) subcutaneous pen (Basaglar KwikPen U-100 Insulin) metformin 1,000 mg tablet 1,000 mg PO BID 07/16/20 07/16/20 Previous Rx's ?Medication ?Instructions ?Recorded azithromycin 500 mg tablet 500 mg PO QDAY 3 days #3 tabs 12/28/24 (Zithromax TRI-BON) magnesium oxide 400 mg PO BID #60 tabs 12/28/24 meclizine 25 mg tablet 25 mg PO BID PRN dizziness #20 tabs 12/28/24 ondansetron 4 mg disintegrating 4 mg PO TID PRN nausea and 12/28/24 tablet vomiting 30 days #10 tabs prednisone 50 mg tablet 50 mg PO QDAY #3 tabs 12/28/24 scopolamine base 1 mg over 3 days 1 mg topical .q72 hours PRN 12/28/24 transdermal patch (Transderm-Scop) dizziness or vertigo #4 ea Allergies Allergy/AdvReac Type Severity Reaction Status Date / Time No Known Allergies Allergy Verified 12/28/24 12:22 Review of Systems Review of Systems Systems Reviewed: All systems reviewed, normal except as documented ED Exam General Limitations: Present no limitations General appearance: Present alert and in no apparent distress Head Head exam: Present atraumatic Eye Eye exam: Present normal appearance, PERRL and EOMI ENT ENT exam: Present normal exam, normal oropharynx and mucous membranes moist Neck Neck exam: Present normal inspection, full ROM and trachea midline Chest Chest inspection: Present normal inspection and symmetric chest wall rise Respiratory Respiratory exam: Present normal lung sounds bilaterally Cardiovascular Cardiovascular exam: Present regular rate, normal rhythm and normal heart sounds Abdominal Exam Abdominal exam: Present soft and normal bowel sounds Extremities Exam Extremities exam: Present normal inspection and full ROM Back Exam Back exam: Present normal inspection and full ROM Neurological Exam Neurological exam: Present alert and oriented X3 Psychiatric Psychiatric exam: Present normal affect and normal mood Skin Skin exam: Present warm, dry, intact and normal color Course Quality Measures none Orders Category Date Time Status CT Screening NOW Care 12/29/24 20:[address] abdomen pelvis w con Stat Exams 12/29/24 20:15 Completed Alcohol, Blood Medical Stat Lab 12/29/24 19:40 Completed BNP [B-Type Natriuretic Peptide] Stat Lab 12/29/24 19:40 Completed CBC Stat Lab 12/29/24 19:40 Completed CMP [Comprehensive Metabolic Panel] Stat Lab 12/29/24 19:40 Completed Ketone [Beta Hydroxybutyrate] Stat Lab 12/29/24 19:40 Completed Lactic Acid [Lactate (Lactic Acid)] Stat Lab 12/29/24 19:40 Completed Lactic Acid, 3 HR Stat Lab 12/29/24 22:47 Ordered Lipase Stat Lab 12/29/24 19:40 Completed UA, C/S IF [Urinalysis, C/S if Indicated] Stat Lab 12/29/24 22:07 Completed Insulin Regular Med 12/29/24 20:50 Discontinued 10 unit IV X1 ONE Sodium Chloride 0.9% 1000 ml [Ns] 1,000 ml Med 12/29/24 19:09 Discontinued IV 999 mls/hr Sodium Chloride 0.9% 1000 ml [Ns] 1,000 ml Med 12/29/24 20:14 Discontinued IV 999 mls/hr Vital Signs Vital signs: Vital Signs Temperature 98.1 F 12/29/24 19:18 Pulse Rate 69 12/29/24 19:18 Respiratory Rate 18 12/29/24 19:18 Blood Pressure 147/62 H 12/29/24 19:18 Pulse Oximetry (%) 96 12/29/24 19:18 Oxygen Delivery Method Room Air 12/29/24 19:18 Weakness MDM Narrative MDM Narrative:: Patient is a 72-year-old female who was seen here yesterday. She has a history of diabetes. She was seen here yesterday and treated for UTI. She states she has had ongoing dizziness and mild abdominal discomfort. Had nausea but no vomiting. States her sugar has been difficult to control. She has no falls or injuries. No other acute complaints. On exam, patient is nontoxic-appearing in no visible signs stress. Abdomen is soft and supple with no mass or or guarding. Vital signs are stable. Workup revealed hyperglycemia, this was reduced a fluid bolus and insulin Patient is not in DKA. CT of the abdomen pelvis revealed hepatic disease without ascites. This is discussed with patient and her daughter who will follow-up with her primary doctor to pursue this. Patient will continue current therapies, follow-up with her clinic within the next 1 to 2 weeks for close recheck. Return anytime for any worsening or emergent changes. Patient data External records reviewed:: EMS form Clinical information provided by:: patient Social determinants that could affect healthcare access:: none Patient has the following chronic illnesses:: Diabetes, hypertension, hyperlipidemia How is presenting disease/condition affected by chronic disease/condition?: exacerbated by Evaluation data The following diagnostics were reviewed and interpreted by me:: EKG tracing(s) (Normal sinus rhythm at 69 bpm, left bundle branch block present.) Lab and/or radiology exams considered but not ordered:: n/a Interpretation Summary: Hyperglycemia Medications / Prescriptions Medications or Prescriptions considered but not ordered:: n/a Medication administrations:: Medication Administration History Discontinued Medications Sodium Chloride (Ns) 1,000 mls @ 999 mls/hr IV .Q1H1M ONE Stop: 12/29/24 20:09 Last Infusion: 12/29/24 21:16 Dose: Infused Documented By: Admin: 12/29/24 19:35 Dose: 999 mls/hr Documented By: ANNA Sodium Chloride (Ns) 1,000 mls @ 999 mls/hr IV .Q1H1M ONE Stop: 12/29/24 21:14 Last Infusion: 12/29/24 21:16 Dose: Infused Documented By: Admin: 12/29/24 20:27 Dose: 999 mls/hr Documented By: EF Insulin Human Regular (Insulin Hum Regular 1 Unit/0.01 Ml (Per Unit)) 10 unit IV X1 ONE Stop: 12/29/24 20:51 Last Admin: 12/29/24 20:55 Dose: 10 unit Documented By: SF Co-signed By: SASHA See above Consultations Consultation(s) initiated? (list below): No Diagnosis Weakness Differential Diagnosis: hypoglycemia, sepsis and dehydration Most likely diagnosis given after review of the tests above:: Hyperglycemia Admission Indicated Admission indicated?: not indicated Admission Request Was there a request for admission?: No Disposition Plan Disposition Plan: Discharge Discharge Attestation Discharge Attestation: The patient and all family members were given an opportunity to ask questions and understood the discharge instructions. Discharge instructions specifically effects, indications for sooner follow up or return to the emergency department, and the expected course of current diagnosis. Patient condition: Stable Discharge Plan Plan Patient Disposition: HOME (Self Care) Patient condition on transfer: Stable Prescriptions/Referrals Prescriptions/Med Rec: No Action atorvastatin 10 mg Tablet 10 mg PO QDAY amlodipine 5 mg Tablet 5 mg PO QDAY glimepiride 1 mg Tablet 1 mg PO QDAY metformin 1,000 mg Tablet 1,000 mg PO BID benazepril 40 mg Tablet 40 mg PO QDAY Basaglar KwikPen U-100 Insulin 100 unit/mL (3 mL) Insulin Pen 80 unit SUBCUT QAM meclizine 25 mg tablet 25 mg PO BID PRN (Reason: dizziness) Qty: 20 0RF scopolamine base [Transderm-Scop] 1 mg over 3 days patch 3 day 1 mg topical .q72 hours PRN (Reason: dizziness or vertigo) Qty: 4 0RF ondansetron 4 mg tablet,disintegrating 4 mg PO TID PRN (Reason: nausea and vomiting) 30 Days Qty: 10 0RF magnesium oxide 400 mg magnesium tablet 400 mg PO BID Qty: 60 0RF prednisone 50 mg tablet 50 mg PO QDAY Qty: 3 0RF azithromycin [Zithromax TRI-BON] 500 mg tablet 500 mg PO QDAY 3 Days Qty: 3 0RF Referrals: Sherri Michel MD [Primary Care Provider] - In 1 week Problem List Clinical Impression: Hyperglycemia Patient/Caregiver Discharge Instructions Education Materials: ED Diabetes with High Blood Sugar Additional Instructions: - Maintain good sugar control and continue current therapies for your diabetes. - Please follow-up with your primary doctor to discuss your blood sugar and results of your liver on your CT. - Please return to emergency room anytime for any worsening or emergent changes. Print Language: Upper Sorbian Stand Alone Forms: [employer] Award Info., Patient Portal Info Letter
[2024-12-29] MEDS: SODIUM CHLORIDE 0.9% 1000 ML 1,000 ML 999 ML IV ×2 (19:35→20:27)
[2024-12-29 19:50] LABS: Basophils # (Auto) 0.0 Thou/mm3 (0.0-0.2); Basophils % (Auto) 0 % (0-2.5); Eosinophils # (Auto) 0.0 Thou/mm3 (0.0-0.5); Eosinophils % (Auto) 0 % (0-10); Hematocrit 34.4 % (36.0-46.0); Hemoglobin 11.4 g/dL (12.0-16.0); Immature Granulocytes Auto 0.05 Thou/mm3 (0.00-0.00); Lymphocytes # (Auto) 1.7 Thou/mm3 (1.0-4.8); Lymphocytes % (Auto) 15 % (10-50); Mean Corpuscular HGB Conc 33.1 g/dl (31.0-37.0); Mean Corpuscular Hemoglobin 30.4 pg (25.0-35.0); Mean Corpuscular Volume 92 fL (80-100); Monocytes # (Auto) 0.5 Thou/mm3 (0.0-0.8); Monocytes % (Auto) 4 % (0-12); Neutrophils # (Auto) 8.8 Thou/mm3 (1.8-7.7); Neutrophils % (Auto) 80 % (37-80); Nucleated Red Blood Cell # 0.00 Thou/mm3 (0.00-0.00); Nucleated Red Blood Cell % 0 /100 WBC (0); Platelet Count 156 Thou/mm3 (140-440); RDW Standard Deviation 43.8 fL (36.4-46.3); Red Blood Count 3.75 Miln/mm3 (4.00-5.20); White Blood Count 11.0 Thou/mm3 (3.6-11.0)
[2024-12-29 19:53] LABS: Beta Hydroxybutyrate 0.3 mmol/L (<0.6)
[2024-12-29 19:54] LABS: Lactate (Lactic Acid) 4.4 mMol/L (0.4-2.0)
--- NOTE | 2024-12-29 20:15 | XR_ITS ---
Examination: CT abdomen with intravenous contrast CT pelvis with intravenous contrast 2-D coronal reconstructions 2-D sagittal reconstructions Date and time of exam:December 29, 2024, 10:37 PM INDICATIONS: Generalized abdominal pain lactic acidosis today. CTDI: vol (mGy) 10.2 DLP: (mGycm) 505 Technique: Multiple axial sections of the abdomen and pelvis have been obtained. 64 slice high-resolution scanner used. 3 mm axial sections have been obtained, post intravenous injection 7370 2-D sagittal, coronal reconstructions obtained. Low dose protocols were performed. One or more of the following dose reduction techniques were used; automated exposure control, adjustment of the mA and/or KV according to patient size, use of iterative reconstruction technique. Findings: Pulmonary fibrosis at the lung bases Moderate enlargement cardiac contour. Liver is irregular in contour Spleen is not enlarged No pancreatic mass No renal or ureteral calculi, no hydronephrosis Aorta normal size Mild small bowel ileus No maricruz appendiceal inflammatory change No bowel obstruction Distended urinary bladder. Enlarged uterine body, sagittal image 94 No diverticulitis Moderate osteopenia Moderate to advanced narrowing hip joints IMPRESSION: Suspect primary hepatocellular disease Mild small bowel ileus No CT findings of appendicitis Recommend pelvic sonography to assess prominence of the mid uterine body
[2024-12-29 20:33] LABS: Alanine Aminotransferase 34 U/L (10-49); Albumin, Serum 4.0 gm/dL (3.4-4.8); Albumin/Globulin Ratio 1.7 (1.2-2.2); Alcohol, Blood Medical < 3.0 mg/dL (0-10.0); Alkaline Phosphatase 92 U/L (46-116); Anion Gap 13 (7-16); Aspartate Amino Transferase 28 U/L (0-34); BUN/Creatinine Ratio 15 Ratio (12-20); Bilirubin,Total 0.7 mg/dL (0.3-1.2); Blood Urea Nitrogen 17 mg/dL (9-23); Calcium 8.5 mg/dL (8.3-10.6); Calcium (Corrected) 8.5 mg/dL (8.5-10.1); Carbon Dioxide 20.0 mMol/L (20.0-31.0); Chloride 100 mMol/L (98-107); Creatinine (Component) 1.1 mg/dL (0.6-1.3); Globulin 2.4 gm/dL (2.3-3.5); Lipase 36 U/L (12-53); Osmolality,Calculated 291 (275-295); Potassium 4.4 mMol/L (3.4-5.1); Sodium 133 mMol/L (136-145); Total Protein 6.4 gm/dL (5.7-8.2); eGFR 53 See Note
[2024-12-29 20:34] LABS: Glucose 530 mg/dL (74-106)
[2024-12-29 20:49] LABS: B-Type Natriuretic Peptide 228 pg/mL (0-100)
[2024-12-29] MEDS: INSULIN HUM REGULAR 1 UNIT/0.01 ML (PER UNIT) 10 UNIT IV (20:55)
[2024-12-29 22:10] VITALS: BP 126/59; PULSE 64; RESP 17; TEMP 36.5; O2SAT 95
[2024-12-29 22:36] LABS: Collection Type, Urine Voided; WBC,Urine 0 /hpf (0-5)
[2024-12-29 22:47] LABS: Reflex Lactate? Y
[2024-12-29 22:50] LABS: Bilirubin,Urine Negative (Negative); Blood,Urine Negative (Negative); Clarity,Urine Clear (Clear/Hazy); Color,Urine Colorless (Lt Yel-Yel); Culture Indicated,Urine Not Indicated; Glucose, Urine 4+ (Negative); Ketones,Urine Negative (Negative); Leukocyte Esterase,Urine Negative (Negative); Nitrite,Urine Negative (Negative); PH,Urine 6.5 (5.0-7.0); Protein,Urine Negative (Neg - Trace); RBC,Urine < 1 /hpf (0-3); Specific Gravity,Urine 1.008 (1.001-1.035); Squamous Epithelial Cell,Urine < 1 /hpf (0-5); Urobilinogen,Urine Negative mg/dL (0.0-1.0)
[2024-12-29 23:33] LABS: Lactic Acid, 3 HR 3.1 mMol/L (0.4-2.0)
== END 2024-12-30 00:12 | disposition home or self-care (01) ==
PROVIDERS: Physician Assistant Medical; Emergency Provider Emergency Medicine; PCP General Practice
DX: E11.65 Type 2 diabetes mellitus with hyperglycemia (principal)
CPT/HCPCS: 36415; 74177; 80053; 80320; 81001; 82010; 83605; 83690; 83880; 85025; 96360; 96361; 99283; A4649; J1815; J7030; Q9967; G0480

== ENCOUNTER → 2025-03-17 | Outpatient (CLI) | payer MEDICARE, SELFPAY ==
--- NOTE | 2025-03-17 08:00 | XR_ITS ---
Examination: Screening digital mammography, bilateral Computer aided detection 3-D breast Tomosynthesis, bilateral Date and time of exam: 03/17/2025, 8:08 a.m. Comparisons: 03/06/2024 Indications: Screening Technique: Nonmagnified MLO, CC views of the breasts to been obtained, reconstructed from 3-D Tomosynthesis images. R2 computer aided detection program utilized for evaluation of suspicious masses and/or abnormal calcifications. 3-D Tomosynthesis images obtained. Technologist: Findings: There are scattered areas of fibroglandular density. No evidence of abnormal masses or suspicious calcifications. Impression: BI-RADS category 1: Negative findings (within normal) Recommend 1 year follow-up mammogram
== END | disposition home or self-care (01) ==
PROVIDERS: Referring Provider Physician Assistant; Visit Provider Physician Assistant
DX: Z12.31 Encounter for screening mammogram for malignant neoplasm of breast (principal); R92.313 Mammographic fatty tissue density, bilateral breasts
CPT/HCPCS: 77063; 77067